=== PATIENT | female | born 1995 | race Caucasian/White ===

== ENCOUNTER 2018-05-15 03:01 | Emergency (ER) | payer OTHER ==
[2018-05-15] MEDS ORDERED: Haloperidol INJ IV/IM* 5 MG/ML AMP IM ONE (03:05)
[2018-05-15] MEDS ORDERED: LORazepam INJ* 2 MG/ML 1 ML VIAL IM ONE (03:05)
[2018-05-15] MEDS ORDERED: diPHENhydraMINE IV* 50 MG/ML 1 ml VIAL (BENADRYL) IM ONE (03:05)
[2018-05-15] MEDS ORDERED: LORazepam INJ* 2 MG/ML 1 ML VIAL ONE (03:06)
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
[2018-05-15] MEDS: NS 0.9% 1000 ML** 2,000 ML IV ONE ×2 (03:38→04:01)
[2018-05-15 04:27] LABS: ABS Basophils 0 10^3/ul (0-0.2); ABS Eosinophils 0 10^3/ul (0-0.6); ABS Lymphocytes 2.4 10^3/ul (1.0-4.8); ABS Monocytes 0.7 10^3/ul (0-0.8); ABS Neutrophils 11.2 10^3/ul (1.5-7.7); ABS Nucleated RBC 0 10^3/ul; Eosinophil % 0.2 %; Hematocrit 38 % (35-47); Hemoglobin 12.3 g/dl (12.0-16.0); Mean Corpuscular HGB Conc 32 g/dl (31-36); Mean Corpuscular Hemoglobin 27 pg (27-31); Mean Corpuscular Volume 85 fL (80-97); Mean Platelet Volume 7.7 fL (7.4-10.4); Nucleated Red Blood Cells % 0; Platelet Count 292 10^3/ul (150-450); Red Blood Count 4.49 10^6/ul (4.00-5.40); Red Cell Distribution Width 16 % (10.5-15); White Blood Count 14.4 10^3/ul (3.5-10.8)
[2018-05-15 04:42] LABS: ALT 13 U/L (7-52); AST 19 U/L (13-39); Albumin 4.1 g/dL (3.2-5.2); Albumin/Globulin Ratio 1.5 (1-3); Alkaline Phosphatase 59 U/L (34-104); Anion Gap 8 mmol/L (2-11); Blood Urea Nitrogen 12 mg/dL (6-24); CO2 Carbon Dioxide 20 mmol/L (22-32); Calcium 8.4 mg/dL (8.6-10.3); Chloride 111 mmol/L (101-111); Creatine Kinase 346 U/L (10-223); EGFR African American 151.3 (>60); Globulin 2.7 g/dL (2-4); Glucose 104 mg/dL (70-100); Potassium 3.2 mmol/L (3.5-5.0); Sodium 139 mmol/L (135-145); Total Protein 6.8 g/dL (6.4-8.9)
[2018-05-15 04:49] LABS: HCG Pregnancy < 0.60 mIU/mL
[2018-05-15 05:09] LABS: Alcohol 228 mg/dL (<10)
[2018-05-15] MEDS ORDERED: Lidocaine 2% EPI 1:200000 MPF*10-20 ML VIAL ONE (05:27)
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
[2018-05-15 07:33] LABS: Barbiturates Urine Screen None Detected (None Detect); Benzodiazepine Urine Screen None Detected (None Detect); Urine Cannabinoids Screen Presumptive Positive (None Detect)
== END 2018-05-15 15:32 | disposition home or self-care (01) ==
LOC: ED 03:01
DX: S01.511A Laceration without foreign body of lip, initial encounter (principal); Y09 Assault by unspecified means; Y92.9 Unspecified place or not applicable; Y07.03 Male partner, perpetrator of maltreatment and neglect; F10.129 Alcohol abuse with intoxication, unspecified; F12.90 Cannabis use, unspecified, uncomplicated; T68.XXXA Hypothermia, initial encounter
CPT/HCPCS: 12011; 36415; 70450; 72125; 80053; 80307; 80320; 82550; 84702; 85025; 96360; 96361; 96372; 99283; G0480; J1200; J1630; J2060